=== PATIENT | female | born 1985 | race Caucasian/White ===

== ENCOUNTER 2024-10-08 07:59 | Outpatient (CLI) | payer OTHER, SELFPAY ==
--- NOTE | ~2024-10-08 | MR_ITS ---
EXAMINATION: MR lumbar spine wo con DATE: 10/08/2024 08:21 INDICATION: Low back pain TECHNIQUE: Magnetic resonance imaging (MRI) of the lumbar spine was performed without intravenous con trast. Sequences included sagittal T2-weighted FSE, sagittal T2-weighted FS FSE, sagittal T1-weighted FSE, and axial T2-weighted FSE. COMPARISON: None FINDINGS: 2 mm retrolisthesis L4 on L5 and 4 mm retrolisthesis L5 on S1. Chronic minimal likely physiologic ant erior wedging at L1. Remaining vertebral body heights are normal. Severe disc height loss with associ ated fibrovascular and fibrofatty degenerative endplate changes at L5-S1. Moderate disc height loss w ith minimal fibrovascular degenerative endplate changes the posterior right L4-L5. Remaining discs ar e normal. The conus medullaris terminates at L1. There is normal signal in the caudal spinal cord. Pa ravertebral soft tissues are unremarkable. The following disc levels are specifically discussed: T12-L1 through L3-L4: The disc does not extend beyond the endplate margin. There is mild bilateral fa cet joint osteoarthritis. There is no neural foraminal stenosis. There is no central canal stenosis. L4-L5: Disc is bulging with annular fissure. There is mild bilateral facet joint osteoarthritis. Ther e is mild bilateral neural foraminal stenosis. There is mild central canal stenosis wall with mild na rrowing of the left and right lateral recesses. L5-S1: Disc is bulging with annular fissure. There is mild bilateral facet joint osteoarthritis. Ther e is mild to moderate bilateral neural foraminal stenosis. There is minimal central canal stenosis. IMPRESSION: 1. Severe lower cervical spondylosis. Reviewed, dictated and finalized at location B.
== END 2024-10-08 08:00 | disposition home or self-care (01) ==
LOC: MICIMG 08:00
PROVIDERS: PCP Neurological Surgery; Visit Provider Neurological Surgery
DX: M47.812 Spondylosis without myelopathy or radiculopathy, cervical region (principal)
CPT/HCPCS: 72148